=== PATIENT | male | born 1985 | race African-American/Black ===

== ENCOUNTER 2023-09-28 18:56 | Emergency (ER) | payer OTHER, SELFPAY ==
[2023-09-28 19:12] VITALS: BP 133/89; PULSE 97; RESP 16; TEMP 36.9; O2SAT 99
--- NOTE | 2023-09-28 19:26 | ED.URI ---
HPI - URI/Sore Throat General Chief Complaint: Upper Respiratory Infection Stated Complaint: chills,sore throat,increase in mucus Time Seen by Provider: 09/28/23 19:14 Source: patient and RN notes reviewed Mode of arrival: ambulatory Limitations: no limitations History of Present Illness HPI Narrative: Patient presents today complaining of a 2 day history of chills, rhinorrhea. Also reported a sore throat that has since resolved. Denies cough, fever, shortness of breath, chest pain. Denies any known sick exposures. He typically takes Zyrtec, Singulair on a daily basis for his asthma. He has not viewed oral inhaler which he has not been using increasingly. Patient is requesting a COVID-19 test Related Data Home Medications Medication Instructions Recorded Confirmed albuterol sulfate 90 mcg/actuation See Rx Instructions .Route .COMPLEX 09/28/23 09/28/23 aerosol inhaler cetirizine 10 mg tablet (Zyrtec) 10 mg PO DAILY 09/28/23 09/28/23 montelukast 10 mg tablet 10 mg PO DAILY 09/28/23 09/28/23 Allergies Allergy/AdvReac Type Severity Reaction Status Date / Time Penicillins Allergy Severe Swelling Verified 09/28/23 19:26 Review of Systems Review of Systems: CONSTITUTIONAL: Denies body aches, fever, or sweats.+ chills EYES: Denies visual changes, redness, or discharge. ENT: Denies congestion, sore throat, or otalgia.+ rhinorrhea CARDIOVASCULAR: Denies chest pain, palpitations, or edema. RESPIRATORY: Denies cough or dyspnea. GASTROINTESTINAL: Denies abdominal pain, nausea, vomiting, or diarrhea. GENITOURINARY: Denies dysuria or hematuria. SKIN: Denies rash, itching, or wounds. MUSCULOSKELETAL: Denies back pain, joint pain, or myalgia. NEUROLOGIC: Denies headache, numbness, tingling, or weakness. PSYCH: Denies depression or anxiety. [facility] Past Medical History Medical History (Updated 09/28/23 @ 19:30 by Corie Cooley, [employer], ) Asthma Comments At time of signature, I have reviewed and agree with nursing past medical, surgical, social and family history unless otherwise noted. Please see nursing chart for further information. There is no relevant family history pertinent to the presenting complaint Exam Narrative: GENERAL: Well-appearing, well-nourished, and in no acute distress. HEAD: Normocephalic, atraumatic. EYES: EOMI. No redness or drainage. Conjunctivae normal. ENT: Mucous membranes pink and moist. Nares clear. No rhinorrhea. TMs normal bilaterally. Throat normal. Uvula midline. NECK: Normal AROM. Supple. No lymphadenopathy. CHEST: No respiratory distress. Clear to auscultation. HEART: Regular rate and rhythm. No murmur appreciated. EXTREMITIES: Normal range of motion. No edema. SKIN: Warm, dry, no rash. Capillary refill normal. Normal skin turgor. NEURO: No focal deficits. Alert and oriented x3. Gait steady. PSYCH: Normal affect. No signs of depression or anxiety. Course Course Level of Care: Express Care Visit Vital Signs Vital signs: Vital Signs Temperature 98.4 F 09/28/23 19:12 Pulse Rate 97 09/28/23 19:12 Respiratory Rate 16 09/28/23 19:12 Blood Pressure 133/89 09/28/23 19:12 Pulse Oximetry 99 09/28/23 19:12 Oxygen Delivery Room Air 09/28/23 19:12 Temperature 98.4 F 09/28/23 19:12 Pulse Rate 97 09/28/23 19:12 Respiratory Rate 16 09/28/23 19:12 Blood Pressure 133/89 09/28/23 19:12 Pulse Oximetry 99 09/28/23 19:12 Oxygen Delivery Room Air 09/28/23 19:12 Reviewed MDM - URI/Sore Throat MDM Narrative Medical decision making narrative: COVID-19 negative. Symptoms likely viral in etiology. Discussed [id number] medication use and duration of illness. No prescription medications indicated at this time. Anticipatory guidance given. Differential Diagnosis Differential diagnosis: Likely upper respiratory infection Lab Data Attestation: I reviewed the patient's lab results. Lab results narrative: COVID-19 negative
== END 2023-09-28 19:33 | disposition home or self-care (01) ==
PROVIDERS: Emergency Provider Nurse Practitioner
DX: J06.9 Acute upper respiratory infection, unspecified (principal); Z20.822 Contact with and (suspected) exposure to COVID-19; J45.909 Unspecified asthma, uncomplicated
CPT/HCPCS: 87426; 99203; G0463

== ENCOUNTER 2023-11-24 11:11 | Emergency (ER) | payer OTHER, SELFPAY ==
--- NOTE | ~2023-11-24 | XR_ITS ---
EXAMINATION: XR chest 2V DATE: 11/24/2023 12:14 INDICATION: Cough. TECHNIQUE: Frontal and lateral views of the chest were obtained. COMPARISON: None. FINDINGS: There is no pneumonia, pleural effusion, or pneumothorax. The heart size is normal. IMPRESSION: 1. No acute cardiopulmonary disease. Reviewed, dictated and finalized at location A.
[2023-11-24 11:22] VITALS: BP 145/99; PULSE 81; RESP 16; TEMP 36.9; O2SAT 98
--- NOTE | 2023-11-24 11:59 | ED.GENADULT ---
HPI - General Adult General Chief complaint: Upper Respiratory Infection Stated complaint: Cough Source: patient Mode of arrival: ambulatory Limitations: no limitations History of Present Illness HPI narrative: Patient presents for evaluation of sick symptoms. His initial symptoms were sinus congestion and sore throat which started 6 days ago. He then developed postnasal drainage and a cough. He currently has chest tightness. He denies any fevers, chills, nausea, vomiting, diarrhea. He has a history of asthma and has a Proair inhaler available at home. He tried taking some allergy medication without much improvement in his symptoms thereafter. He does not smoke. Related Data Home Medications Medication Instructions Recorded Confirmed albuterol sulfate 90 mcg/actuation See Rx Instructions .Route .COMPLEX 09/28/23 11/24/23 aerosol inhaler cetirizine 10 mg tablet (Zyrtec) 10 mg PO DAILY 09/28/23 11/24/23 montelukast 10 mg tablet 10 mg PO DAILY 09/28/23 11/24/23 Allergies Allergy/AdvReac Type Severity Reaction Status Date / Time Penicillins Allergy Severe Swelling Verified 11/24/23 11:19 Review of Systems Review of Systems: CONSTITUTIONAL: Denies fever, chills, or sweats. EYES: Denies visual changes, redness, or discharge. ENT: Reports sinus congestion, postnasal drainage and recent but not current sore throat CARDIOVASCULAR: Denies chest pain, palpitations, or edema. RESPIRATORY: Reports cough and chest tightness. Denies SOB or wheezing GASTROINTESTINAL: Denies abdominal pain, nausea, vomiting, or diarrhea. GENITOURINARY: Denies dysuria or hematuria. SKIN: Denies rash or itching. MUSCULOSKELETAL: Denies back pain, joint pain, or myalgia. NEUROLOGIC: Denies headache, numbness, dizziness, or weakness. PSYCHIATRIC: Denies anxiety or depression. [facility] Past Medical History Medical History Asthma Surgical History Surgical History No pertinent past surgical history Family History Family History Mother Family history non-contributory Social History Social History Smoking status: Never smoker Substance use: current Last use: social Gender identity (if verbalized by the patient): Male Spiritual care concerns: No Exam Narrative: GENERAL: Well-appearing, well-nourished, and in no acute distress. HEAD: Normocephalic, atraumatic. EYES: PERRLA and EOMI. ENT: Nares clear, no rhinorrhea or epistaxis. Mucous membranes moist. Oropharynx without tonsillar hypertrophy exudate or other lesions. Bilateral TMs pearly esucdero nonbulging NECK: Supple. No adenopathy or masses. No carotid bruits or JVD CHEST: diminished lung sounds bilaterally. No adventitious lung sounds HEART: Regular rate and rhythm. No murmur heard. Normal peripheral pulses. ABDOMEN: Soft, nontender, nondistended, normal active bowel sounds. EXTREMITIES: Normal range of motion. No edema. SKIN: Warm, dry, no rash. NEURO: No focal deficits. Alert and oriented x3. PSYCH: Normal mood and affect. Course Course Emergency Course: this is a 38-year-old male who presented for evaluation of respiratory symptoms. COVID negative. Chest x-ray negative. Exam is consistent with acute viral syndrome. Increase hydration. [id number]-[id number] agents for symptom management. Will discharge with prednisone and albuterol. Follow-up with primary provider. Go to the ER for worsening symptoms. Patient in agreement with plan of care. Level of Care: Express Care Visit Vital Signs Vital signs: Vital Signs Temperature 36.9 C 11/24/23 11:22 Pulse Rate 81 11/24/23 11:22 Respiratory Rate 16 11/24/23 11:22 Blood Pressure 145/99 H 11/24/23 11:22 Pulse Oximetry 98 11/24/23 11:22 Oxygen Delivery
[2023-11-24 12:06] LABS: EDCOVIDSCREEN Negative (Negative)
== END 2023-11-24 12:35 | disposition home or self-care (01) ==
PROVIDERS: Emergency Provider Nurse Practitioner
DX: B34.9 Viral infection, unspecified (principal); Z20.828 Contact with and (suspected) exposure to other viral communicable diseases; J45.909 Unspecified asthma, uncomplicated
CPT/HCPCS: 71046; 87426; 99213; G0463

== ENCOUNTER 2024-04-24 14:34 | Emergency (ER) | payer OTHER, SELFPAY ==
[2024-04-24 14:47] VITALS: BP 147/81; PULSE 89; RESP 16; TEMP 36.8; O2SAT 99
--- NOTE | 2024-04-24 15:23 | ED_ITS ---
HPI - General Adult General Chief complaint: Upper Respiratory Infection Stated complaint: runny nose,cough asthmatic History of Present Illness HPI narrative: Cole Burrows Is a 38-year-old male who presents today with complaints of having UR symptoms that started Saturday to Saturday. He states he is feeling a little bit better today, tolerating p.o., no fevers. Related Data Home Medications ?Medication ?Instructions ?Recorded ?Confirmed ?Last Taken ?Type cetirizine 10 mg tablet (Zyrtec) 10 mg PO DAILY 09/28/23 04/24/24 Unknown History montelukast 10 mg tablet 10 mg PO DAILY 09/28/23 04/24/24 Unknown History terbinafine HCl 250 mg tablet 250 mg PO DAILY 04/24/24 04/24/24 Unknown History Allergies Allergy/AdvReac Type Severity Reaction Status Date / Time Penicillins Allergy Severe Swelling Verified 04/24/24 14:39 Review of Systems Review of Systems: All systems reviewed & are unremarkable except as noted in HPI and below PMFSH Past Medical History Medical History Asthma Surgical History Surgical History No pertinent past surgical history Family History Family History Mother Family history non-contributory Social History Social History Smoking status: Never smoker Substance use: current Last use: social Gender identity (if verbalized by the patient): Male Spiritual care concerns: No Exam Narrative: GENERAL: Well-appearing, well-nourished, and in no acute distress. HEAD: Normocephalic, atraumatic. EYES: PERRLA and EOMI. ENT: Nares clear, no rhinorrhea or epistaxis. Mucous membranes moist. Oropharynx without tonsillar hypertrophy exudate or other lesions. Bilateral TMs pearly escudero nonbulging NECK: Supple. No adenopathy or masses. No carotid bruits or JVD CHEST: Clear to auscultation. No respiratory distress. No wheezes rales or rhonchi HEART: Regular rate and rhythm. No murmur heard. Normal peripheral pulses. ABDOMEN: Soft, nontender, nondistended, normal active bowel sounds. EXTREMITIES: Normal range of motion. No edema. SKIN: Warm, dry, no rash. NEURO: No focal deficits. Alert and oriented x3. PSYCH: Normal mood and affect. Course Course Level of Care: Express Care Visit Vital Signs Vital signs: Vital Signs Temperature 36.8 C 04/24/24 14:47 Pulse Rate 89 04/24/24 14:47 Respiratory Rate 16 04/24/24 14:47 Blood Pressure 147/81 H 04/24/24 14:47 Pulse Oximetry 99 04/24/24 14:47 Oxygen Delivery Room Air 04/24/24 14:47 Temperature 36.8 C 04/24/24 14:47 Pulse Rate 89 04/24/24 14:47 Respiratory Rate 16 04/24/24 14:47 Blood Pressure 147/81 H 04/24/24 14:47 Pulse Oximetry 99 04/24/24 14:47 Oxygen Delivery Room Air 04/24/24 14:47 Medical Decision Making MDM Narrative Medical decision making narrative: ED COURSE AND MEDICAL DECISION MAKING: This 38 year old patient presents with symptoms most suggestive of viral upper respiratory tract infection. Lungs are clear bilaterally without any respiratory distress or accessory muscle use. He wanted to be tested because he has an event tomorrow Viral swab - Negative Patient is discharged home in stable condition with expectant management. Return precautions were provided. Procedures: Pulse oximetry interpretation - not hypoxic. Review of medical records. DISPOSITION: Discharged home in stable condition. IMPRESSION: Acute upper respiratory tract infection, likely viral. Vital Signs Vital Signs: Vital Signs Temperature 36.8 C 04/24/24 14:47 Pulse Rate 89 04/24/24 14:47 Respiratory Rate 16 04/24/24 14:47 Blood Pressure 147/81 H 04/24/24 14:47 Pulse Oximetry 99 04/24/24 14:47 Oxygen Delivery Room Air 04/24/24 14:47 Temperature 36.8 C 04/24/24 14:47 Pulse Rate 89 04/24/24 14:47 Respiratory Rate 16 04/24/24 14:47 Blood Pressure 147/81 H 04/24/24 14:47 Pulse Oximetry 99 04/24/24 14:47 Oxygen Delivery Room Air 04/24/24 14:47 Vitals reviewed by me Lab Data Lab results reviewed: Yes I reviewed the patient's lab results. Discharge Plan Discharge Clinical Impression: Upper respiratory infection Qualifiers: URI type: unspecified URI Qualified Code(s): J06.9 - Acute upper respiratory infection, unspecified Patient Disposition: Home, Self-Care Condition: Stable Instructions: Antibiotic Form Additional Instructions: continue to take Tylenol / Motrin for body aches or fever Drink plenty of fluids Follow up with your PCP in 1 week If you develop any worsening symptoms or concerns proceed to the ER. Patient Language: Icelandic Prescriptions: No Action cetirizine [Zyrtec] 10 mg Tablet 10 mg PO DAILY montelukast 10 mg tablet 10 mg PO DAILY albuterol sulfate 90 mcg/actuation aerosol powdr breath activated 2 inh inhalation Q4H PRN (Reason: shortness of breath) Qty: 1 0RF terbinafine HCl 250 mg tablet 250 mg PO DAILY Follow-up/Referrals: PHYSICIAN NOT ON STAFF,NONSTAFF [Primary Care Provider] - Time of Disposition: 15:26
[2024-04-24 15:35] LABS: EDCOVIDSCREEN Negative (Negative); EDINFLUASCREEN Negative (Negative); EDINFLUBSCREEN Negative (Negative)
== END 2024-04-24 15:36 | disposition home or self-care (01) ==
PROVIDERS: Emergency Provider Nurse Practitioner Family
DX: J06.9 Acute upper respiratory infection, unspecified (principal); Z79.899 Other long term (current) drug therapy; Z20.822 Contact with and (suspected) exposure to COVID-19
CPT/HCPCS: 87426; 87804; 99212; G0463